=== PATIENT | female | born 1975 | race Caucasian/White ===

== ENCOUNTER 2024-11-27 14:29 | Emergency (ER) | payer OTHER, SELFPAY ==
[2024-11-27 14:36] VITALS: BP 188/112; PULSE 96; RESP 16; TEMP 36.1; O2SAT 100
--- OUTSIDE RECORDS SUMMARY | 2024-11-27 14:39 | XMS_ITS | Clinical Summary ---
Author Organization [facility] Health Address [address] [place] [address] Care Team Providers Care Surveying Crew Rodman Name Role Phone Unavailable Primary Care Provider Unavailabl e Allergies No known active allergies Medications levonorgestreL-e thinyl estrad (SEASONALE) 0.15 mg-30 mcg (91) tablet Take 1 tablet by mouth 1 (one) time each day. 07/24/2022 Active Active Problems Problem Noted Date Diagnosed Date Periodontitis 08/16/2023 Social History Tobacco Use Types Packs/Day Years Used Date Smoking Tobacco: Never Smokeless Tobacco: Never Tobacco Cessation:Counseling Given: Not Answered Alcohol Use Standard Drinks/Week Comments Yes 4 (1 standard drink = 0.6 oz pur e alcohol) Comments Unknown Sex and Gender Information Value Date Recorded Sex Assigned at Not on file Legal Sex Female 8:12 AM PST Gender Identity Not on file Sexual Orientation Not on file Last Filed Vital Signs Vital Sign Reading Time Taken Comments Blood Pressure 159/85 11/19/2022 3:19 PM CDT Pulse 88 11/19/2022 3:19 PM CDT Temperature - - Respiratory Rate - - Oxygen Saturation - - Inhaled Oxygen Concentration - - Weight - - Height - - Body Mass Index - - Plan of Treatment Upcoming Encounters Date Type Department Care Team (Late st Contact Info) Description 12/25/2024 9:00 AM CDT Office Visit [facility] [address] [phone] Alida Parker, [facility] [address] [place] [address] 12/25/2024 9:00 AM CDT Office Visit [facility] [address] [phone] Ayesha Watson, DDS [address] [address] Health Maintenance Due Date Last Done Comments Dental Oral Exam 10/17/2024 04/17/2024, 08/16/2023, 10/18/2022 Dental X-Ray: Bitewings 10/17/2024 04/17/2024 Periodontal Maintenance 11/17/2024 08/18/19 25, 04/17/2024, 12/20/2023, Additional history exists Scaling and Root Planing 12/03/2024 023, 11/19/2022, 11/06/2022, Additional history exists Dental X-Ray: Full Mouth 10/20/2025 10/19/2022, 12/2022 Dental X-Ray: Panoramic 10/20/2025 10/19/2022, 10/18 Procedures Procedure Name Priority Date/Time Associated Diagnosis Comments PERIO MAINTENANCE Routine 08/17/2024 11: 00 AM CDT PERIODIC ORAL EVALUATION - ESTABLISHED PATIENT Routine 04/17/2024 8:00 AM SCREEN PRINTING CLOTH SPREADER Encounter for dental examination and cleaning without abnormal findings UL PERIODONTAL SCALING AND ROOT PLANING - ONE TO THREE TEETH PER QUADRANT Routine 11/19/2022 3:00 PM CDT PANORAMIC RADIOGRAPHIC IMAGE Routine 10/18/2022 9:00 AM CDT INTRAORAL - COMPREHENSIVE SERIES OF RADIOGRAPHIC IMAGES Routine 10/18/2022 9:00 AM CDT from Last 3 Months or Most Recently Relevant to Health Maintenance Insurance [facility]
--- OUTSIDE RECORDS SUMMARY | 2024-11-27 14:39 | XMS_ITS | Encounter Summary ---
Author Organization [facility] Address [address] [place] [address] Care Team Providers Care It Desktop Support Technician Name Role Phone Unavailable Primary Care Provider Unavailabl e Prior Encounters Date Type Department Care Team Description 08/17/2024 11:00 AM CDT Office Visit [facility] [address] [phone] Alida Parker [facility] 04/17/2024 8:00 AM CARDIOVASCULAR TECHNICIAN Office Visit [facility] [address] [phone] Ayesha Watson DDS Encounter for dental examination and cleaning without abnormal findings (Primary Dx) 04/17/2024 8:00 AM CARDIOVASCULAR TECHNICIAN Office Visit [facility] [address] [phone] Rosemary Sinclair, [facility] 12/20/2023 9:00 AM CDT Office Visit [facility] [address] [phone] Alida Parker [facility] 08/16/2023 11:00 AM CDT Office Visit [facility] [address] [phone] Ayesha Watson DDS Encounter for dental examination and cleaning without abnormal findings (Primary Dx) 08/16/2023 11:00 AM CDT Office Visit [facility] [address] [phone] Alida Parker [facility] 05/03/2023 8:00 AM CARDIOVASCULAR TECHNICIAN Office Visit [facility] [address] [phone] Rosemary Sinclair, [facility] 11/19/2022 3:00 PM CDT Office Visit [facility] [address] [phone] Rosemary Sinclair, [facility] 11/06/2022 11:00 AM CDT Office Visit [facility] [address] [phone] Ashley Yin, [facility] 10/18/2022 9:00 AM CDT Office Visit [facility] [address] [phone] Ascencion Mcgee Last Filed Vital Signs Vital Sign Reading [...] 12/25/2024 9:00 AM CDT Office Visit [facility] [address] [phone] Alida Parker, [facility] [address] [facility] [place] [address] 12/25/2024 9:00 AM CDT Office Visit [facility] [address] [phone] Ayesha Watson DDS [address] [address] Procedures Procedure Name Priority Date/Time Associated Diagnosis Comments PERIO MAINTENANCE Routine 08/17/2024 11: 00 AM CDT TOPICAL APPLICATION OF FLUORIDE VARNISH Routine 08/17/2024 11:00 AM CDT TOPICAL APPLICATION OF FLUORIDE VARNISH Routine 04/17/2024 8:00 AM CARDIOVASCULAR TECHNICIAN BITEWINGS - FOUR RADIOGRAPHIC IMAGES Routine 04/17/2024 8:00 AM CARDIOVASCULAR TECHNICIAN PERIODIC ORAL EVALUATION - ESTABLISHED PATIENT Routine 04/17/2024 8:00 AM CARDIOVASCULAR TECHNICIAN Encounter for dental examination and cleaning without abnormal findings PERIO MAINTENANCE Routine 04/17/2024 8:0 0 AM CARDIOVASCULAR TECHNICIAN PERIO MAINTENANCE Routine 12/20/2023 9:0 0 AM CDT TOPICAL APPLICATION OF FLUORIDE VARNISH Routine 08/16/2023 11:00 AM CDT COMPREHENSIVE ORAL EVALUATION - NEW OR ESTABLISHED PATIENT Routine 08/16/2023 11:00 AM CDT Encounter for dental examination and cleaning without abnormal findings PERIO MAINTENANCE Routine 08/16/2023 11: 00 AM CDT 3 L COMPOSITE FILLING Routine 08/16/2023 12:00 AM CDT 14 B AMALGAM FILLING Routine 08/16/2023 12:00 AM CDT 10 ROOT CANAL Routine 08/16/2023 12:00 AM CDT ORAL HYGIENE INSTRUCTIONS Routine 2022 8:00 AM CARDIOVASCULAR TECHNICIAN PERIO MAINTENANCE Routine 05/03/2023 8:0 0 AM CARDIOVASCULAR TECHNICIAN SMILEY WHITE TRAYS Routine 11/19/2022 3:00 PM CDT ORAL HYGIENE INSTRUCTIONS Routine 2022 3:00 PM CDT TOPICAL APPLICATION OF FLUORIDE VARNISH Routine 11/19/2022 3:00 PM CDT LL KYLAH DECON ONE TO THREE TEETH/QUAD Routine 11/19/2022 3:00 PM CDT UL KYLAH DECON ONE TO THREE TEETH/QUAD Routine 11/19/2022 3:00 PM CDT LL ANTIBACT IRR/QUAD Routine 11/19/2022 3:00 PM CDT UL ANTIBACT IRR/QUAD Routine 11/19/2022 3:00 PM CDT LL PERIODONTAL SCALING AND ROOT PLANING - ONE TO THREE TEETH PER QUADRANT Routine 11/19/2022 3:00 PM CDT UL PERIODONTAL SCALING AND ROOT PLANING - ONE TO THREE TEETH PER QUADRANT Routine 11/19/2022 3:00 PM CDT LR KYLAH DECON ONE TO THREE TEETH/QUAD Routine 11/06/2022 11:00 AM CDT UR KYLAH DECON ONE TO THREE TEETH/QUAD Routine 11/06/2022 11:00 AM CDT LR ANTIBACT IRR/QUAD Routine 11/06/2022 11:00 AM CDT LR PERIODONTAL SCALING AND ROOT PLANING - ONE TO THREE TEETH PER QUADRANT Routine 11/06/2022 11:00 AM CDT UR PERIODONTAL SCALING AND ROOT PLANING - ONE TO THREE TEETH PER QUADRANT Routine 11/06/2022 11:00 AM CDT UR ANTIBACT IRR/QUAD Routine 11/06/2022 11:00 AM CDT INTRAORAL PHOTO Routine 10/18/2022 9:00 AM CDT INTRAORAL PHOTO Routine 10/18/2022 9:00 AM CDT INTRAORAL PHOTO Routine 10/18/2022 9:00 AM CDT INTRAORAL PHOTO Routine 10/18/2022 9:00 AM CDT PANORAMIC RADIOGRAPHIC IMAGE Routine 10/18/2022 9:00 AM CDT INTRAORAL - COMPREHENSIVE SERIES OF RADIOGRAPHIC IMAGES Routine 10/18/2022 9:00 AM CDT COMPREHENSIVE ORAL EVALUATION - NEW OR ESTABLISHED PATIENT Routine 10/18/2022 9:00 AM CDT 11 PONTIC Routine 10/18/2022 12:00 AM CDT 12 ABUTMENT Routine 10/18/2022 12:00 AM CDT 10 ABUTMENT Routine 10/18/2022 12:00 AM CDT 14 MO COMPOSITE FILLING Routine 10/19/19 12:00 AM CDT 25 L COMPOSITE FILLING Routine 12:00 AM CDT 25 ROOT CANAL Routine 10/18/2022 12:00 AM CDT Visit Diagnoses Diagnosis Start Date Encounter for dental examination and cleaning without abnormal findings 08/16/2023 Encounter for dental examination and cleaning without abnormal findings 04/17/2024 Insurance [facility] Member Subscriber Plan / Payer (Ef fective 2023-Present) Name:Ally Lancaster Relation to Subscriber:Spouse Name:ANKUSH LANCASTER Date of :1974 Address: [address] [place] [address] Payer ID:[id number] Type:Not on file Address: [address] [address]
--- OUTSIDE RECORDS SUMMARY | 2024-11-27 14:39 | XMS_ITS | Clinical Summary ---
Author Organization [facility] Address [address] [place] [address] Care Team Providers Care Manager User Experience Name Role Phone Callie Castillo MD Primary Care Provider [phone] Source Comments [facility],non-owned Affiliates and Associated Physician Practices is amultiple site organization consisting of ambulatory clinics and hospital sitesin [place], [place], [place] and [place]. This disclosure is being madepursuant to the Care Everywhere program and may not contain all information available regarding this patient. Last updated 18.[facility] Allergies No known active allergies Medications * Be aware that medications may not be up to date on this document. Alwaysverify current medications with the patient. naproxen sodium (Aleve) 220 MG tablet Take 1 (one) tablet by mouth as needed for Pain Active tirzepatide (Mounjaro) 2.5 MG/0.5ML injectionIndic ations:Class 2 obesity due to excess calories without serious comorbidity with body mass index (BMI) of 38.0 to 38.9 in adult Inject 2.5 (two and one-half) mg subcutaneously every 7 days 2 mL 1 024 Active levonorgestrel -ethinyl estradiol (Jolessa) 0.15-0.03 MG tabletIndicati ons:Contracept titi Therapy Take 1 (one) tablet by mouth once daily Reasons: Control Treatment 91 tablet 025 Active levonorgestrel -ethinyl estradiol (Seasonale; Jolessa; Quasense) 0.15-0.03 MG tabletIndicati ons:Contracept titi Therapy Take 1 (one) tablet by mouth once daily Reasons: Control Treatment 91 tablet 3 024 2024 Discontinued Active Problems Problem Noted Date Diagnosed Date Acute cough 03/28/2022 Chronic midline low back pain without sciatica 0 11/06/2019 Class 2 obesity due to exces s calories without serious comorbidity with body mass index (BMI) of 38.0 to 38.9 in adult 11/06/2019 Resolved Problems Problem Noted Date Diagnosed Date Resolved Date Abnormal uterine bleeding (AUB) 07/11/2021 05/18/2022 Bronchospasm 12/09/2020 05/18/2022 Elevated BP without diagnosis of hypertension 11/06/19 20 07/11/2021 Lipid screening 06/25/2007 06/26/2016 Overview (06/25/2007): Labs normal 01/2007 Encounters Date Type Department Care Team Description 10/27/2024 Refill [facility] - Family Medicine [address] [place], [place] [phone] Callie Castillo MD Refill Request from Last 3 Months Immunizations Immunization Administration Dates Next Due [employer] primary monovalent 12+ yr 0.3mL Pur ple cap 03/22/2021 HEP A VACCINE, ADULT 03/25/2018 INFLUENZA VACCINE, ADJUVANTE D, QUADR. (FLUAD QUADRIVALENT; 65Y+) (AIIV4) 03/22/2021 INFLUENZA VACCINE, CELL CULT URE, QUADR. (FLUCELVAX QUADRIVALENT; 6MO+) (CCIIV4) 02/17/2022 TDAP (7yrs+) 11/06/2019 TETANUS 12/23/2006 Family History Medical History Relation Name Comments CAD (Coronary Artery Disease) Father CABG x 4 in late 60s CVA Neg Hx Cancer - Breast Neg Hx Cancer - Colon Neg Hx Diabetes - Type 2 Neg Hx Relation Name Status Comments Brother healthy Father Alive [place] age 40 Maternal Grandfather (Age 82) [place] D DM type 2. Maternal Grandmother Alive Mother Alive Other strong family H x CAD, HTN. Paternal Grandfather Paternal Grandmother (Age 62) [facility] Social History Tobacco Use Types Packs/Day Years Used Date Smoking Tobacco: Never Passive Smoke Exposure: Never Smokeless Tobacco: Never Tobacco Cessation:Counseling Given: Not Answered Alcohol Use Standard Drinks/Week Comments Yes 0 (1 standard drink = 0.6 oz pur e alcohol) AUDIT-C Answer Date Recorded Q1: How often do you have a drink containing alc ohol? 2-4 times a month 11/06/2019 Q2: How many drinks containi ng alcohol do you have on a typical day when you are drinking? 3 or 4 11/06/2019 Q3: How often do you have si x or more drinks on one occasion? 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 Not on file Not on file Not on file Last Filed Vital Signs Vital Sign Reading Time Taken Comments Blood Pressure 152/86 09/05/2023 2:22 PM CDT Pulse 86 09/05/2023 2:22 PM CDT Temperature 36 C (96.8 F) 09/05/2023 2:22 PM CDT Respiratory Rate 14 03/28/2022 8:20 AM FLYING SQUAD SALESPERSON Oxygen Saturation 99% 09/05/2023 2:22 PM CDT Inhaled Oxygen Concentration - - Weight 111.9 kg (246 lb 9.6 oz) 09/05/2023 2:22 PM CDT Height 172.7 cm (5' 7.99) 09/04/2023 9:17 AM CD T Body Mass Index 37.5 09/04/2023 9:17 AM CDT Plan of Treatment Upcoming Encounters Date Type Department Care Team (Late st Contact Info) Description 12/15/2024 11:30 AM CDT Office Visit [facility] Medical Group - Family Medicine [address] [place] [phone] Callie Castillo MD [address] [place] [phone] Health Maintenance Due Date Last Done Comments COLOGUARD (AGES 45-75) - COLON CA SCREENING 1976 COLON MONITORING 1976 COLONOSCOPY - COLON CA SCREENING 1976 CT COLONOGRAPHY - COLON CA SCREENING 1976 Colorectal Cancer Screening 1976 FIT - COLON CA SCREENING 1976 FLEX SIG - COLON CA SCREENING 1976 HEPATITIS C SCREENING 10/26/1994 HEPATITIS B VACCINE (1 of 3 - 19+ 3-dose series) 10/31/1995 SCREENING FOR DIABETES 12/10/2023 , 08/27/2020, 06/26/2016, Additional history exists COVID-19 VACCINE (2023- season) 2024 03/22/2021, 08/05/2020 DEPRESSION SCREENING 05/13/2024 09/04/2023, 07/12/19 PAP SMEAR 07/11/2024 07/11/2021, 07/0 11/2016, 10/09/2011, Additional history exists INFLUENZA VACCINE (#1) 2025 02/17/2022, 2020 MAMMOGRAM 09/03/2025 09/04/2023, 04/12, 03/13/2021 ZOSTER VACCINE (1 of 2) 2026 LIPID TESTING 09/05/2028 09/06/2023, 08/11, 06/26/2016, Additional history exists DTAP/TDAP/TD VACCINES (3 - Td or Tdap) 11/05/2029 11/06/2019, 12/23/2006 HIV SCREENING Completed 08/21/2007 HEPATITIS A VACCINE Discontinued 03/25/2018 HIB VACCINE Aged Out No longer eligi ble based on patient's age to complete this topic HPV VACCINE Aged Out No longer eligi ble based on patient's age to complete this topic MENINGOCOCCAL (Group B) VACCINE SHARED DECISION-MAKING Aged Out No longer eligible based on patient's age to complete this topic MENINGOCOCCAL GROUPS A/C/Y/W VACCINE Aged Out No longer eligible based on patient's age to complete this topic PNEUMOCOCCAL VACCINE Aged Out No long er eligible based on patient's age to complete this topic Procedures Procedure Name Priority Date/Time Associated Diagnosis Comments LIPID PROFILE REFLEX LDL DIRECT Routine 09/06/2023 9:55 AM CDT Screening cholesterol level MAMMO BILAT SCREENING W AVIVA Routine 09/04/2023 9:30 AM CDT Visit for screening mammogram PAP IG RFLX HPV HR ALL PATH Routine 07/11/2021 9:26 AM FLYING SQUAD SALESPERSON Well woman exam with routine gynecological exam COMPREHENSIVE METABOLIC PANEL STAT 12/09/2020 11:47 AM CDT HIV 1/0/2 ANTIBODIES W CONFIRM 08/21/2007 11:30 AM CDT from Last 3 Months or Most Recently Relevant to Health Maintenance Results * LIPID PROFILE REFLEX LDL DIRECT (09/06/2023 9:55 AM CDT) Cholesterol 194 <200 mg/dL [facility] ACCOUNT BILL Triglycerides 111 <150 mg/dL [facility] ACCOUNT BILL HDL Cholesterol 68 >40 mg/dL [facility] ACCOUNT BILL VLDL Calculated 22 <=30 mg/dL [facility] ACCOUNT BILL LDL Calculated 104 <130 mg/dL [facility] ACCOUNT BILL Cholesterol/HDL Ratio 2.9 <4.5 [facility] ACCOUNT BILL LDL/HDL Ratio 1.5 <5.0 [facility] ACCOUNT BILL Comment: FASTING Blood BLOOD SPECIMEN / Unknown 09/06/2023 9:55 AM CDT 09/06/2023 Narrative Resulting Agency Comment Lab Testing performed at: [address] [id number] [place] Malorie Victor PA-C LAB - CHEMISTRY ORDERABLES Fi nal Result [facility] ACCOUNT BILL [address] [place] [address] * MAMMO BILAT SCREENING W AVIVA (09/04/2023 9:30 AM CDT) Anatomical Region Laterality Modality Breast Bilateral Mammography 09/04/2023 9:35 AM CDT Impressions 09/04/2023 11:04 AM CDT : No suspicious finding in either breast RECOMMENDATION: Screening mammography in one year, pending no interval breast concerns. Patient will be notified of the mammography results by lay letter. OVERALL ASSESSMENT: BI-RADS CATEGORY 1: NEGATIVE. > Dictated by Jose iPnk DO (resident) Orlando Love MD (resident) participated in the interpretation of this study I, Kelley Olsen MD have personally reviewed and interpreted this examination/study. > Interpreting Provider: Kelley Olsen MD on 09/04/2023 11:04 AM Narrative 09/04/2023 11:04 AM CDT EXAMINATIONS: BILATERAL DIGITAL SCREENING MAMMOGRAM AND BILATERAL BREAST TOMOSYNTHESIS WITH CAD LOCATION: [facility] EXAM DATE: 09/04/2023 HISTORY: Screening. RISK ASSESSMENT CALCULATION: Patient completed a breast cancer risk assessment during her appointment 09/04/2023. Based upon the information she provided and her mammographic breast density, her lifetime risk of developing breast cancer is 12 % (Average Risk <15%; Intermediate / Moderate Risk 15-19; High Risk > 20%). Risk assessment based upon the BRCAPRO model. COMPARISON: Comparison is made to prior mammograms back to 2020, the most recent dated 04/25/2022. BREAST PARENCHYMAL COMPOSITION: Category A: The breasts are almost entirely fatty. FINDINGS: Right breast: No mammographic evidence of malignancy in the right breast Left breast: No mammographic evidence of malignancy in the left breast. Callie Castillo MD MAMMO ORDERABLES Final Result * PAP IG RFLX HPV HR ALL PATH (07/11/2021 9:26 AM FLYING SQUAD SALESPERSON) Diagnosis [facility] ACCOUNT BILL Comment: NEGATIVE FOR INTRAEPITHELIAL LESION OR MALIGNANCY. CELLULAR CHANGES ASSOCIATED WITH INFLAMMATION ARE PRESENT. Specimen Adequacy [facility] ACCOUNT BILL Comment: Satisfactory for evaluation. Endocervical and/or squamous metaplastic cells (endocervical component) are present. Clinician Provided ICD10 [facility] ACCOUNT BILL Comment: Z01.419 N93.9 N89.8 Performed by [facility] ACCOUNT BILL Comment:Adina Ellsworth, Cytotec hnologist (ASCP) Comment . [facility] ACCOUNT BILL Note [facility] ACCOUNT BILL Comment: The Pap smear is a screening test designed to aid in the detection of premalignant and malignant conditions of the uterine cervix. It is not a diagnostic procedure and should not be used as the sole means of detecting cervical cancer. Both false-positive and false-negative reports do occur. . IGLBP CPT Code Automation [facility] ACCOUNT BILL Comment: This liquid based ThinPrep(R) pap test was screened with the use of an image guided system. Note [facility] ACCOUNT BILL Comment: The HPV DNA reflex criteria were not met with this specimen result therefore, no HPV testing was performed. . Pathology/Cytolog y ENTIRE VAGINA / Unknown 07/11/2021 9:26 AM FLYING SQUAD SALESPERSON 07/12/2021 Narrative [facility] ACCOUNT BILL - 07/14/2021 3:09 PM FLYING SQUAD SALESPERSON Source.............Endocervix LMP / Prev Treat...ERG=[id number] No. of containers..01 ThinPrep Vial Resulting Agency Comment Lab Testing performed at: [address] [id number] Callie Castillo MD LAB - PATHOLOGY/CYTOLOGY ORDERAB LES Final Result [facility] ACCOUNT BILL [address] [place] [address] * COMPREHENSIVE METABOLIC PANEL (12/09/2020 11:47 AM CDT) BUN 9 7 - 26 mg/dL 12/09/2020 12:51 PM [facility] Creatinine 0.71 0.56 - 0.96 mg/dL 12/09/2020 12:51 PM T [facility] Sodium 139 136 - 145 mmol/L 12/09/2020 12:51 PM T [facility] Potassium 4.2 3.5 - 4.5 mmol/L 12/09/2020 12:51 PM T [facility] Chloride 103 98 - 107 mmol/L 12/09/2020 12:51 PM T [facility] CO2 22 22 - 29 mmol/L 12/09/2020 12:51 PM T [facility] Glucose 91 70 - 115 mg/dL 12/09/2020 12:51 PM [facility] Calcium 10.2 8.4 - 10.2 mg/dL 12/09/2020 12:51 PM [facility] Protein Total 7.9 6.0 - 8.3 g/dL 12/09/2020 12:51 PM [facility] Albumin 4.1 3.4 - 5.0 g/dL 12/09/2020 12:51 PM [facility] Bilirubin Total 0.5 0.2 - 1.2 mg/dL 12/09/2020 12:51 PM [facility] Alkaline Phosphatase 69 40 - 150 U/L 12/09/2020 12:51 PM [facility] ALT 21 5 - 55 U/L 12/09/2020 12:51 PM [facility] AST 20 5 - 34 U/L 12/09/2020 12:51 PM [facility] Anion Gap 18 8 - 18 12/09/2020 12:51 PM [facility] BUN/Creatinine Ratio 13 7 - 23 12/09/2020 12:51 PM [facility] Osmolality Calculated 286 270 - 300 mOsm/kg 12/09/2020 12:51 PM [facility] Albumin/Globulin Ratio 1.1 1.1 - 2.3 12/09/2020 12:51 PM [facility] eGFR by CKD-EPI >90 >=90 mL/min/1.7 3 m2 12/09/2020 12:51 PM [facility] Blood BLOOD SPECIMEN / Unknown Venipuncture / Unknown 12/09/2020 11:47 AM CDT 12/09/2020 11:56 AM T us Batsheva Gold SWEDGER-EXECUTIVE ADMIN LAB - CHEMISTRY ORDE MADAY Final Result [facility] [address] [place] [phone], [facility] [phone] * HIV 1/0/2 ANTIBODIES W CONFIRM (PO REF LAB) (08/21/2007 11:30 AM CDT) HIV-1 Antibody EIA [facility] ACCOUNT BILL HIV-1 Antibody O.D. Ratio <1.00 <1.00 [facility] ACCOUNT BILL Comment:Index Value: Specime n reactivity relative to the negative cutoff. HIV-1/HIV-2 Non Reactive Non Reactive [facility] ACCOUNT BILL 08/21/2007 11:3 0 AM CDT 08/21/2007 7:57 PM CDT Narrative Resulting Agency Comment [facility] [address] [facility] [id number] Estrella Jason MD LAB - MICROBIOLOGY ORDERABL ES Final Result [facility] ACCOUNT BILL [address] [place] [address] from Last 3 Months or Most Recently Relevant to Health Maintenance Insurance [facility] Care Teams Manager User Experience Relationship Specialty Start Date End Date Callie Castillo MD [address] [facility] [address] [place] [address] PCP - General Family Medicine 07/30/19
[2024-11-27 14:42] VITALS: BP 188/88
--- NOTE | 2024-11-27 14:49 | ED.URI ---
HPI - URI/Sore Throat General Chief Complaint: Upper Respiratory Infection Stated Complaint: throat Time Seen by Provider: 11/27/24 14:48 Source: patient and RN notes reviewed Mode of arrival: ambulatory Limitations: no limitations History of Present Illness HPI Narrative: 49-year-old female presents with concern for 5 day history of sore throat, fatigue. She reports white spots on her throat. She reports she has been traveling recently for work. She denies runny nose, stuffy nose, cough, stomach ache. Reports she has been taking Aleve for headaches. MD elicited complaint: sore throat Related Data Home Medications ?Medication ?Instructions ?Recorded ?Confirmed ?Last Taken ?Type levonorgestrel 0.15 mg-ethinyl 11/27/24 Unknown History estradiol 30 mcg tablets,3 mos pack(91) (Esha) Allergies Allergy/AdvReac Type Severity Reaction Status Date / Time No Known Allergies Allergy Verified 11/27/24 14:42 Review of Systems Review of Systems: CONSTITUTIONAL: Denies malaise, chills, sweats, or fever. Reports fatigue EYES: Denies visual changes, redness, or discharge. ENT: Reports rhinorrhea, congestion, sinus pain, otalgia. Reports sore throat. CARDIOVASCULAR: Denies chest pain, palpitations, or edema. RESPIRATORY: Denies cough. Denies dyspnea. GASTROINTESTINAL: Denies abdominal pain, nausea, vomiting, diarrhea SKIN: Denies rash or itching. MUSCULOSKELETAL: Denies myalgia. NEUROLOGIC: Reports headache. All systems reviewed & are unremarkable except as noted in HPI and below PMFSH Comments At time of signature, agree with nursing past medical, surgical, social and family history. There is no relevant family history pertinent to the presenting complaint Exam Narrative: GENERAL: Well-appearing, well-nourished, and in no acute distress. HEAD: Normocephalic EYES: PERRLA, conjunctivae clear ENT: Nares clear. Mucous membranes moist. TM pearly de anda with dull light reflex bilaterally; no tragal tenderness. Oropharynx erythematous without lesions. Tonsils enlarged and with exudate, no drooling, no hoarseness, no trismus, uvula midline. NECK: Supple. No lymphadenopathy CHEST: Clear to auscultation, breath sounds equal. No wheezing, rhonchi, rales, or stridor. No respiratory distress, speaks in full sentences. HEART: Regular rate and rhythm. No murmur heard. SKIN: Warm, clammy, no rash. NEURO: Alert and oriented x3. PSYCH: Normal mood and affect Course Course Emergency Course: Patient is aware of diagnosis, understands and agrees to treatment plan. Anticipatory guidance given. Patient agrees to follow-up as directed and is aware of reasons to seek care at the emergency department. Portions of this record may have been created with voice recognition software Level of Care: Express Care Visit Vital Signs Vital signs: Vital Signs Temperature 97 F L 11/27/24 14:36 Pulse Rate 96 11/27/24 14:36 Respiratory Rate 16 11/27/24 14:36 Blood Pressure 188/112 H 11/27/24 14:36 Pulse Oximetry 100 11/27/24 14:36 Oxygen Delivery Room Air 11/27/24 14:36 Temperature 97 F L 11/27/24 14:36 Pulse Rate 96 11/27/24 14:36 Respiratory Rate 16 11/27/24 14:36 Blood Pressure 188/88 H 11/27/24 14:42 Pulse Oximetry 100 11/27/24 14:36 Oxygen Delivery Room Air 11/27/24 14:36 Reviewed. MDM - URI/Sore Throat MDM Narrative Medical decision making narrative: Differential diagnosis considered: Browne virus, strep pharyngitis, allergic rhinitis, upper respiratory tract infection, sinusitis, rhinosinusitis, nasopharyngitis. viral pharyngitis, otitis media, otitis externa, pneumonia, bronchitis, viral cough syndrome, viral syndrome, and influenza. Exam findings show no acute concerns or changes; patient is non-toxic appearing and is in no distress. Patient is appropriate for outpatient treatment and follow-up. Lab Data Attestation: I reviewed the patient's lab results. Critical Care Time Critical Care Time Critical Care Time: No Discharge Plan Discharge Clinical Impression: Acute tonsillitis Patient Disposition: Home Condition: Stable Instructions: Antibiotic Form, Tonsillitis (ED) Additional Instructions: Your mono test is negative -Take the medication as prescribed. Throw away the toothbrush after 24hours of antibiotic. -Eat and drink things that are easy to swallow, like tea or soup, or popsicles to suck on. -Oral rinses such as: Salt water gargles and/or may use topical anesthetic (eg. Chloraseptic spray) or lozenges to relieve dryness or throat pain). -Take Tylenol and ibuprofen as needed for pain and fever as directed. 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 -Follow up with primary care provider in 2-3 days if condition is not improving; or seek ER visit if you have trouble breathing, cannot drink enough fluids, have muffled voice, difficulty opening your mouth, or severe swelling. Patient Language: Chadian Prescriptions: New penicillin V potassium 500 mg tablet 500 mg PO Q12H 10 Days Qty: 20 0RF No Action levonorgestrel-ethinyl estrad [Jolessa] 0.15 mg-30 mcg (91) tablets,dose pack,3 month Follow-up/Referrals: PHYSICIAN NOT ON STAFF,NONSTAFF [Primary Care Provider] - Time of Disposition: 15:09
[2024-11-27 14:52] LABS: EDSTREPNEGPOS1 Negative (Negative)
[2024-11-27 15:09] LABS: EDMONONEGPOS Negative (Negative)
== END 2024-11-27 15:14 | disposition home or self-care (01) ==
PROVIDERS: Emergency Provider Nurse Practitioner
DX: J03.90 Acute tonsillitis, unspecified (principal)
CPT/HCPCS: 36416; 86308; 87081; 87880; 99203; G0463